=== PATIENT | male | born 1965 | race American Indian/Alaskan Native ===

== ENCOUNTER 2016-07-23 10:53 | Day surgery (SDC) | payer MEDICARE ==
[2016-07-23] MEDS ORDERED: NACL 0.9% 1000 ML 1,000 ML IV SCH (11:00)
--- NOTE | 2016-07-23 11:47 | Anesthesia Day of Surgery ---
Anesthesia Day of Surgery - Day of Surgery Patient Examined: Yes Patient H&P Reviewed: Yes Patient is NPO: Yes
--- NOTE | 2016-07-23 11:47 | Anesthesia Consultation ---
Anesthesia Consult and Med Hx Date of service: 07/23/16 - Airway ROM Head & Neck: Adequate Mental/Hyoid Distance: Adequate Mallampati Class: Class III Intubation Access Assessment: Possibly Difficult - Pulmonary Exam CTA: Yes - Cardiac Exam Cardiac Exam: RRR - Pre-Operative Health Status ASA Pre-Surgery Classification: ASA2 Proposed Anesthetic Plan: MAC - Cardiovascular System Hx Hypertension: Yes - Gastrointestinal Hx Gastroesophageal Reflux Disease: (rare, food related)
[2016-07-23] MEDS ORDERED: DIPRIVAN 10 MG/ML IV ONE ×3 (12:03→13:00)
[2016-07-23] MEDS ORDERED: WATER FOR IRRIG STERILE IR ONE (12:18)
--- NOTE | 2016-07-23 12:23 | History and Physical Report ---
History of Present Illness Date of examination: 07/23/16 Date of admission: 07/23/2016 Chief complaint: Colorectal cancer screening History of present illness: Patient is a 51-year-old male referred for colorectal cancer screening denies any complaints. Past History Past Medical History: hypertension, hyperlipidemia Social history: denies: smoking, alcohol abuse Medications and Allergies Allergies Allergy/AdvReac Type Severity Reaction Status Date / Time No Known Allergies Allergy Verified 07/22/16 13:00 Home Medications Medication Instructions Recorded Confirmed Last Taken Type Lovastatin 40 mg PO DAILY 07/22/16 07/22/16 Unknown History Active Meds: Active Medications Sodium Chloride (Nacl 0.9% 1000 Ml) 1,000 mls @ 50 mls/hr IV DIRECT TYLER Last Admin: 07/23/16 11:51 Dose: 50 mls/hr Review of Systems All systems: negative Exam - Constitutional Vitals: Temp Pulse Resp BP Pulse Ox 97.0 F L 69 28 H 133/82 100 07/23/16 11:47 07/23/16 11:47 07/23/16 11:47 07/23/16 11:47 07/23/16 11:47 General appearance: Present: no acute distress, well-nourished - EENT Eyes: Present: PERRL ENT: hearing intact, clear oral mucosa - Neck Neck: Present: supple, normal ROM - Respiratory Respiratory effort: normal Respiratory: bilateral: CTA - Cardiovascular Heart Sounds: Present: S1 & S2. Absent: rub, click - Extremities Extremities: pulses symmetrical, No edema Peripheral Pulses: within normal limits - Abdominal General gastrointestinal: Present: soft, non-tender, non-distended, normal bowel sounds Male genitourinary: Present: normal - Integumentary Integumentary: Present: clear, warm, dry - Musculoskeletal Musculoskeletal: gait normal, strength equal bilaterally - Psychiatric Psychiatric: appropriate mood/affect, intact judgment & insight - Neurologic Neurologic: CNII-XII intact, moves all extremities Assessment and Plan Colorectal cancer screening. Plan: Full colonoscopy.
--- NOTE | 2016-07-23 12:25 | Operative Report ---
Operative Report Operative Report: Date of procedure: 07/23/2015 Procedure: Colonoscopy with hot biopsy polypectomy. Also multiple polyp ablations. Attending physician: Robert Delgadillo MD Transit Planning Manager: Robert Delgadillo MD Indication: 51-year-old male referred for colorectal cancer screening Consent: Informed consent was obtained after advising the patient and family regarding nature of this procedure, its indications, potential benefits as well as possible complications including but not limited to bleeding perforation and adverse reaction to medication, infection as well as other cardiopulmonary complications. An informed written and verbal consent was then obtained after due opportunity was provided for questions and answers. Monitoring: Patient was monitored continuously with pulse oximetry and electrocardiographic recordings as well as blood pressure recordings. Vital signs remained stable throughout this procedure with no untoward events. Preoperative assessment: Patient was assessed immediately prior to this procedure for capacity to tolerate monitored anesthesia care and moderate sedation as well as general anesthesia. Patient's ASA classification is 2, Mallampati class is 2, Hyomental distance is 3. Instrument: Fujinon videocolonoscope Medications: Performed given intravenously in divided doses. For details please refer to anesthesia records. Description of procedure: Patient was placed in the left lateral decubitus position after achieving sedation, a digital rectal examination was performed following which the colonoscope was introduced into the anal verge and advanced to the cecum which was identified by the cecal valve, the appendiceal orifice, as well as by the cecal strap and direct transillumination. The colonoscope was subsequently withdrawn with careful inspection of all mucosal surfaces. Patient tolerated this procedure well and was subsequently taken to the recovery room. The following findings were noted. Findings: The cecum had a diminutive polyp which was ablated. The ileocecal valve, patient had another diminutive polyp which was ablated. The ascending colon had a diminutive polyp which is ablated. In the transverse colon, patient had a sessile 5-6 mm polyp was removed by hot biopsy polypectomy. The descending colon and sigmoid colon were normal. There was some scattered stool in sections of the colon which was irrigated. On the retroflex view at the anal verge patient had internal hemorrhoids. The rectum was normal. Impression: Diminutive cecal, ileocecal valve, and sending colon polyp status post ablation. Transverse colon polyp status post hot biopsy polypectomy. Internal hemorrhoids. Plan: Follow pathology report. Repeat colonoscopy in 5 years. High-fiber diet. Attending physician: Robert Delgadillo MD Transit Planning Manager: Robert Delgadillo MD Indication: [] Consent: Informed consent was obtained after advising the patient and family regarding nature of this procedure, its indications, potential benefits as well as possible complications including but not limited to bleeding perforation and adverse reaction to medication, infection as well as other cardiopulmonary complications. An informed written and verbal consent was then obtained after due opportunity was provided for questions and answers. Monitoring: Patient was monitored continuously with pulse oximetry and electrocardiographic recordings as well as blood pressure recordings. Vital signs remained stable throughout this procedure with no untoward events. Preoperative assessment: Patient was assessed immediately prior to this procedure for capacity to tolerate monitored anesthesia care and moderate sedation as well as general anesthesia. Patient's ASA classification is [2], Mallampati class is [2], Hyomental distance is [3]. Instrument: [] Medications: [] Description of procedure: Patient was placed in the left lateral decubitus position after achieving sedation, a digital rectal examination was performed following which the colonoscope was introduced into the anal verge and advanced to the cecum which was identified by the cecal valve, the appendiceal orifice, as well as by the cecal strap and direct transillumination. The colonoscope was subsequently withdrawn with careful inspection of all mucosal surfaces. Patient tolerated this procedure well and was subsequently taken to the recovery room. The following findings were noted. Findings: [] Impression: [] Plan: []
--- NOTE | 2016-07-23 13:20 | Discharge Summary ---
Short Stay Discharge Plan Activity: advance as tolerated Weight Bearing Status: Weight Bear as Tolerated Diet: regular Additional Instructions: Post Sedation D/C Instructions When you return home you may resume your regular diet unless otherwise directed. -Go directly home from the hospital and rest quietly. You may resume normal activities tomorrow. -Do NOT drive, return to work, operate any machinery or make any important personal or business decisions today. -Do NOT drink any alcohol or take nerve or sleeping drugs. They add to the effects of the medicine still present in your body. Follow up with Dr. Delgadillo in 2 weeks to obtain pathology results. Repeat Colonoscopy recommended in 5 years. High Fiber Diet.
[2016-07-23 13:32] VITALS: BP 120/87
--- NOTE | 2016-07-23 15:16 | Post Anesthesia Evaluation ---
- Post Anesthesia Evaluation Patient Participated: Yes Airway Patent: Yes Stable Respiratory Function: Yes Nausea/Vomiting: No Temp > 96.8F: Yes Pain Manageable: Yes Adequeate Hydration: Yes Anesthesia Complications: No
== END 2016-07-23 10:54 | disposition home or self-care (01) ==
LOC: GIO 10:53
PROVIDERS: ATTEND Internal Medicine Gastroenterology
DX: Z12.11 Encounter for screening for malignant neoplasm of colon (principal); K63.5 Polyp of colon; K64.8 Other hemorrhoids; I10 Essential (primary) hypertension; E78.00 Pure hypercholesterolemia, unspecified
CPT/HCPCS: 45384; 45388; 88305; J2704